=== PATIENT | female | born 1985 | race Caucasian/White ===

== ENCOUNTER → 2018-07-28 | Outpatient (REF) | payer OTHER | LOC: M WUC 10:30 | DX: J02.9 Acute pharyngitis, unspecified (principal) ==

== ENCOUNTER → 2022-10-02 | Outpatient (REF) | payer OTHER | LOC: M SFHCDERM 16:34 | PROVIDERS: ATTEND Nurse Practitioner Family | DX: D49.2 Neoplasm of unspecified behavior of bone, soft tissue, and skin (principal); D22.9 Melanocytic nevi, unspecified ==